=== PATIENT | male | born 1985 | race Caucasian/White ===

== ENCOUNTER 2020-02-26 23:51 | Outpatient (CLI) | payer MEDICAID, OTHER | END 2020-02-26 23:52 | disposition short-term general hospital (02) | LOC: EMS 23:51 | PROVIDERS: ATTEND Surgery | DX: S09.90XA Unspecified injury of head, initial encounter (principal); M25.512 Pain in left shoulder; S29.9XXA Unspecified injury of thorax, initial encounter; V47.5XXA Car driver injured in collision with fixed or stationary object in traffic accident, initial encounter; Y92.413 State road as the place of occurrence of the external cause | CPT/HCPCS: A0425; A0427 ==